=== PATIENT | female | born 1935 | race Caucasian/White ===

== ENCOUNTER → 2016-10-07 | Outpatient (CLI) | payer OTHER, BC | LOC: FIMAGING 13:48 | PROVIDERS: ATTEND Internal Medicine | DX: J40 Bronchitis, not specified as acute or chronic (principal) ==

== ENCOUNTER 2016-11-02 14:18 | Emergency (ER) | payer OTHER, BC ==
[2016-11-02 14:38] LABS: COLOR YELLOW; LEUKOCYTE ESTERASE,URINE 1+ (NEGATIVE); NITRITE,URINE NEGATIVE (NEGATIVE); PH,URINE 5.5 (5.0-7.5)
[2016-11-02 14:47] LABS: MUCUS TRACE /lpf (NONE-1+)
[2016-11-02 14:48] LABS: WBC,URINE >182 /hpf (0-3)
[2016-11-02 14:49] LABS: BACTERIA 1+ /hpf (NONE SEEN); YEAST OCCASIONAL /hpf (NONE SEEN)
[2016-11-02] MEDS ORDERED: CEPHALEXIN 500 MG CAP PO ONE (14:49)
--- NOTE | 2016-11-02 14:49 | EDPHY ---
H & P Time Seen by Provider: 11/02/16 14:38 HPI/ROS: CHIEF COMPLAINT: Dysuria HISTORY OF PRESENT ILLNESS: 80-year-old female with history of frequent UTIs presents with dysuria. Onset of dysuria, urinary frequency and hesitancy yesterday. Persistent since then. No associated abdominal pain, flank pain or fever. REVIEW OF SYSTEMS: Constitutional: No fever, no chills Eyes: No visual changes ENT: No sore throat Respiratory: No cough, no shortness of breath Cardiac: No chest pain Gastrointestinal: No nausea, no vomiting, no abdominal pain Musculoskeletal: No leg pain or swelling Skin: No rash Neurological: No headache, no weakness Psychiatric: No depression Past Medical/Surgical History: Hypertension CAD UTIs Smoking Status: Never smoked Physical Exam: General Appearance: Alert, pleasant HEENT: Normal inspection Respiratory: normal respiratory rate Gastrointestinal: Abdomen is soft and nontender Neurological: A&O, nonfocal exam Skin: Warm and dry Psychiatric: Mood and affect normal Constitutional: Initial Vital Signs Temperature (C) 36.5 C 11/02/16 14:38 Heart Rate 66 11/02/16 14:38 Respiratory Rate 18 11/02/16 14:38 Blood Pressure 177/87 H 11/02/16 14:38 O2 Sat (%) 97 11/02/16 14:38 O2 Delivery Mode Room Air Allergies/Adverse Reactions: adhesive Allergy (Intermediate, Verified 11/02/16 14:36) Rash Iodinated Contrast- Oral and IV Dye [Iodinated Contrast Media - IV Dye] Allergy (Verified 11/02/16 14:36) Swelling/neck,face,throat metoclopramide Allergy (Verified 11/02/16 14:36) omega-3 acid ethyl esters Allergy (Verified 11/02/16 14:36) Klqbyys-Aag-Asg Reductase Inhibitor Allergy (Verified 11/02/16 14:36) Home Medications: Medication Instructions Recorded Aspirin [Aspirin 325 mg (*)] 325 mg PO DAILY 06/27/13 Atenolol [Tenormin 25 mg (*)] 12.5 mg PO DAILY 06/27/13 Darifenacin Hydrobromide [Enablex] 15 mg PO DAILY 06/27/13 Levothyroxine [Synthroid 150 mcg 150 mcg PO DAILY06 06/27/13 (*)] Pramipexole Di-HCl [Mirapex 0.25 0.5 mg PO DAILY@18 06/27/13 mg (*)] Raloxifene HCl [Evista] 60 mg PO DAILY 06/27/13 Albuterol [Proventil Inhaler HFA 2 puffs IH PRN PRN 03/25/14 (*)] Calcium Carbonate [Oyster Shell 500 mg PO DAILY 03/25/14 Calcium 500 mg (*)] Omeprazole [Prilosec] 40 mg PO DAILY 06/27/14 Pramipexole Di-HCl [Mirapex 1 mg 1 mg PO DAILY@12 06/29/14 (*)] Nitroglycerin [Nitrostat 0.4 mg 0.4 mg SL PRN PRN 30 Days 07/06/14 (*)] Raloxifene HCl [Evista] 60 mg PO 08/16/14 Cephalexin [Keflex (*)] 500 mg PO TID #21 cap 11/02/16 Prozac 20 MG (*) 11/02/16 TRAMADOL HCL 11/02/16 Medical Decision Making - Data Points Laboratory Results: 11/02/16 14:35 Urine Color YELLOW Urine Appearance CLOUDY Urine pH 5.5 (5.0-7.5) Ur Specific [place] 1.015 (1.002-1.030) Urine Protein NEGATIVE (NEGATIVE) Urine Ketones NEGATIVE (NEGATIVE) Urine Blood TRACE H (NEGATIVE) Urine Nitrate NEGATIVE (NEGATIVE) Urine Bilirubin NEGATIVE (NEGATIVE) Urine Urobilinogen 0.2 EU EU (0.2-1.0) Ur Leukocyte Esterase 1+ H (NEGATIVE) Urine RBC 5-10 /hpf H /hpf (0-3) Urine WBC >182 /hpf H /hpf (0-3) Ur Epithelial Cells 1+ /lpf /lpf (NONE-1+) Urine Bacteria 1+ /hpf H /hpf (NONE SEEN) Urine Mucus TRACE /lpf /lpf (NONE-1+) Urine Yeast OCCASIONAL /hpf H /hpf (NONE SEEN) Urine Glucose NEGATIVE (NEGATIVE) Departure - Departure Disposition: Home, Routine, Self-Care Clinical Impression: Urinary tract infection Qualifiers: Urinary tract infection type: acute cystitis Hematuria presence: without hematuria Qualified Code(s): N30.00 - Acute cystitis without hematuria Condition: Good Instructions: Urinary Tract Infection in Women (ED) Referrals: Tiffany Ramírez MD [Primary Care Provider] - As per Instructions Prescriptions: Cephalexin [Keflex (*)] 500 mg PO TID #21 cap
[2016-11-02 14:52] VITALS: BP 167/78; PULSE 67; RESP 20; TEMP 98.1; O2SAT 92
== END 2016-11-02 14:58 | disposition home or self-care (01) ==
LOC: CED 14:18
DX: N30.00 Acute cystitis without hematuria (principal); B96.20 Unspecified Escherichia coli [E. coli] as the cause of diseases classified elsewhere; I10 Essential (primary) hypertension; I25.10 Atherosclerotic heart disease of native coronary artery without angina pectoris; Z79.82 Long term (current) use of aspirin
CPT/HCPCS: 81003-PO; 81015-PO

== ENCOUNTER → 2016-11-15 | Outpatient (CLI) | payer OTHER, BC | LOC: BMCIMAGING 09:46 | PROVIDERS: ATTEND Internal Medicine | DX: Z13.820 Encounter for screening for osteoporosis (principal); M85.80 Other specified disorders of bone density and structure, unspecified site ==

== ENCOUNTER 2017-02-14 10:32 | Day surgery (SDC) | payer OTHER, BC ==
[2017-02-14] MEDS ORDERED: LR 1,000 ML IV ONE (10:43)
[2017-02-14 11:12] VITALS: PULSE 82
--- NOTE | 2017-02-14 12:02 | PDANEPAE ---
ANE History of Present Illness colonoscopy ANE Past Medical History - Cardiovascular History Hx Hypertension: Yes Hx Arrhythmias: Yes Hx Chest Pain: No Hx Coronary Artery / Peripheral Vascular Disease: No Hx CHF / Valvular Disease: No Hx Palpitations: No Cardiovascular History Comment: "Atrial Septal Thickening" causing PAC's. Venous insufficiency. HPL - Pulmonary History Hx COPD: No Hx Asthma/Reactive Airway Disease: Yes Hx Recent Upper Respiratory Infection: No Hx Oxygen in Use at Home: No Hx Sleep Apnea: Yes Sleep Apnea Screening Result - Last Documented: Positive Pulmonary History Comment: hx of asthma. MARLON w/CPAP. - Neurologic History Hx Cerebrovascular Accident: No Hx Seizures: No Hx Dementia: No - Endocrine History Hx Diabetes: No Obesity: severe Endocrine History Comment: Alka's - Renal History Hx Renal Disorders: Yes Renal History Comment: stress incontinence. UTI's - Liver History Hx Hepatic Disorders: Yes Hepatic History Comment: Gilbert's syndrome - Neurological & Psychiatric Hx Hx Neurological and Psychiatric Disorders: Yes Neurological / Psychiatric History Comment: lumbar fusion is "loose" due to infection. Neuropathy-feet,ankles "idiopathic". mood stabilized on Prozac - Cancer History Hx Cancer: No - Congenital Disorder History Hx Congenital Disorders: No - GI History GERD: no, mild Hx Gastrointestinal Disorders: No Gastrointestinal History Comment: Pt is a "polyp-maker!!" Hx of ~15 colonoscopies. on Ranitidine to decrease antihistamines - Other Health History Other Health History: Poly Myalgia Rheumatica. ventral incisional hernia. OA - Chronic Pain History Chronic Pain: Yes (PMR) - Surgical History Prior Surgeries: CABG x4. cataract extractions w/IOL-bilat. lumbar fusion. bilat total hips. bilat total knees. resurfacing of L shoulder ANE Review of Systems Review of Systems: - Exercise capacity METS (RN): 4 METS (pt. ambulates with walker "due to poor balance") ANE Patient History - Allergies Allergies/Adverse Reactions: adhesive Allergy (Intermediate, Verified 02/11/17 16:39) Rash Iodinated Contrast- Oral and IV Dye [Iodinated Contrast Media - IV Dye] Allergy (Verified 02/11/17 16:39) Swelling/neck,face,throat metoclopramide Allergy (Verified 02/11/17 16:39) scopolamine Allergy (Verified 02/11/17 16:47) Other-Enter Comments Hcbswxx-Spd-Lku Reductase Inhibitor Allergy (Verified 02/11/17 16:39) methyl methacrylate Allergy (Uncoded 02/11/17 16:47) Other-Enter Comments - Home Medications Home Medications: Aspirin [Aspirin 325 mg (*)] 325 mg PO DAILY 06/27/13 [Last Taken 02/10/17] Atenolol [Tenormin 25 mg (*)] 12.5 mg PO DAILY 06/27/13 [Last Taken 02/14/17 07: 30] Levothyroxine [Synthroid 150 mcg (*)] 150 mcg PO DAILY06 06/27/13 [Last Taken 07:30] Pramipexole Di-HCl [Mirapex 0.25 mg (*)] 0.5 mg PO DAILY@18 06/27/13 [Last Taken 02/14/17 07:30] Raloxifene HCl [Evista] 60 mg PO DAILY 06/27/13 [Last Taken 02/14/17 07:30] Albuterol [Proventil Inhaler HFA (*)] 2 puffs IH PRN PRN 03/25/14 [Last Taken Unknown] Calcium Carbonate [Oyster Shell Calcium 500 mg (*)] 500 mg PO DAILY 03/25/14 [ Last Taken Unknown] Pramipexole Di-HCl [Mirapex 1 mg (*)] 1 mg PO DAILY@12 06/29/14 [Last Taken 07:30] Prozac 20 MG (*) 11/02/16 [Last Taken 02/14/17 07:30] TRAMADOL HCL 11/02/16 [Last Taken 02/10/17] Leflunomide 02/11/17 [Last Taken 02/14/17 07:30] Ranitidine HCl 02/11/17 [Last Taken 02/14/17 07:30] - NPO status NPO Since - Liquids (Date): 02/14/17 NPO Since - Liquids (Time): 07:30 NPO Since - Solids (Date): 02/12/17 NPO Since - Solids (Time): 20:00 - Smoking Hx Smoking Status: Never smoked ANE Labs/Vital Signs - Vital Signs Blood Pressure: 150/82 Heart Rate: 82 Respiratory Rate: 14 O2 Sat (%): 95 Height: 154.94 cm Weight: 106.594 kg ANE Physical Exam - Airway Neck exam: FROM Mallampati Score: Class 1 Mouth exam: normal dental/mouth exam - Pulmonary Pulmonary: clear to auscultation - Cardiovascular Cardiovascular: regular rate and rhythym - ASA Status ASA Status: III ANE Anesthesia Plan Anesthesia Plan: GA with mask
--- NOTE | 2017-02-14 12:06 | PDGENHP ---
History & Physical Chief Complaint: Diarrhea History of Present Illness: Chronic diarrhea Pertinent Past, Social, Family History: Obesity. MARLON. PMR Relevant Physical Exam: Obese. NAD. CTA B/L. RRR without m/r/g. GI obese. NABS. Soft. Cardiorespiratory Assessment: ASA 4. Colonoscopy with biopsy
[2017-02-14] MEDS ORDERED: PROPOFOL 200 MG/20 ML VIAL ONE ×2 (12:15)
[2017-02-14] MEDS ORDERED: MIDAZOLAM 2 MG/2 ML VIAL ONE (12:15)
[2017-02-14] MEDS ORDERED: fentaNYL 100 MCG/2 ML INJ ONE (12:15)
--- NOTE | 2017-02-14 12:46 | GIREPORT ---
[facility] - Endoscopy Department Patient Name: Kaya Corona Procedure Date: 02/14/2017 12:00 PM Patient Type: Outpatient Attending MD/ ER Physician: Anival Goel MD Procedure: Colonoscopy Indications: Chronic diarrhea Providers: Anival Goel MD Medicines: Propofol per Anesthesia Complications: No immediate complications. Description of Procedure: After obtaining informed consent, the scope was passed under direct vis ion. Throughout the procedure, the patient's blood pressure, pulse, and oxyg en saturations were monitored continuously. The Colonoscope with irrigatio n channel was introduced through the anus and advanced to the ileocolonic anastomosis. The colonoscopy was performed without difficulty. The jian ent tolerated the procedure well. The quality of the bowel preparation was good. The rectum and surgical anastamosis were photographed. Findings: The digital rectal exam findings include decreased sphincter tone. Pert inent negatives include no palpable rectal lesions. There was evidence of a prior end-to-side ileo-colonic anastomosis in t he proximal ascending colon. This was patent and was characterized by heal thy appearing mucosa. A 5 mm polyp was found in the proximal ascending colon. The polyp was sessile. The polyp was removed with a cold biopsy forceps. Resection an d retrieval were complete. Normal mucosa was found in the entire colon. Biopsies for histology wer e taken with a cold forceps from the right colon and left colon for evalu ation of microscopic colitis. A few small-mouthed diverticula were found in the sigmoid colon. Estimated Blood Loss: Estimated blood loss: none. Post Op Diagnosis: - Decreased sphincter tone found on digital rectal exam. - Patent end-to-side ileo-colonic anastomosis, characterized by healthy appearing mucosa. - One 5 mm polyp in the proximal ascending colon, removed with a cold b iopsy forceps. Resected and retrieved. - Normal mucosa in the entire examined colon. Biopsied. - Diverticulosis in the sigmoid colon. - No endoscopic cause for chronic diarrhea. Recommendation: - Await pathology results. These will be evaluated for mastocytosis (gi crow her elevated tryptase level) and microscopic colitis. - Repeat colonoscopy is not recommended for surveillance. - Return to GI office as previously scheduled. - Consider a trial of cholestyramine powder (4gm daily) to treat her ch ronic diarrhea. We will discuss this at her follow up visit. - Thank you for allowing me to be involved in the care of your patient. Attending Participation: I personally performed the entire procedure without the assistance of a fellow, resident or surg ical field administrative assistant. Anival Goel MD Anival Goel MD 02/14/2017 12:46:12 PM This report has been signed electronicallyDavid MD Manasa Number of Addenda: 0 Note Initiated On: 02/14/2017 12:00 PM Total Procedure Duration Time 0 hours 16 minutes 14 seconds [email or web address]
[2017-02-14] MEDS ORDERED: NALOXONE HCL 0.4 MG/ML INJ IVP PRN (12:51)
[2017-02-14 13:17] VITALS: O2SAT 100
--- NOTE | 2017-02-14 13:25 | POSTANESTH ---
Post Anesthetic Evaluation Cardiovascular Status: Similar to Pre-Op Cond Respiratory Status: Similar to Pre-op Cond. Level of Consciousness/Mental Status: Can Participate in Eval Pain Control: Adequate, Prn Tx Ordered Nausea/Vomiting Control: Adequate, Prn Tx Ordered Complications Possibly Related to Anesthesia: None Noted
[2017-02-14 13:45] VITALS: BP 153/63; RESP 16; TEMP 97.5
== END 2017-02-14 13:41 | disposition home or self-care (01) ==
LOC: FSGY 10:32
PROVIDERS: ATTEND Internal Medicine Gastroenterology
PROC: 0DBE8ZX Excision of Large Intestine, Via Natural or Artificial Opening Endoscopic, Diagnostic (ICD-10-PCS; principal; 2017-02-14 12:00)
PROC: 0DBK8ZX Excision of Ascending Colon, Via Natural or Artificial Opening Endoscopic, Diagnostic (ICD-10-PCS; principal; 2017-02-14 12:00)
DX: Z12.11 Encounter for screening for malignant neoplasm of colon (principal); R19.7 Diarrhea, unspecified; D12.2 Benign neoplasm of ascending colon
CPT/HCPCS: J2250; J2704; J3010

== ENCOUNTER 2017-07-22 13:40 | Emergency (ER) | payer OTHER, BC ==
[2017-07-22] MEDS ORDERED: predniSONE 20 MG TAB PO ONE (14:19)
[2017-07-22] MEDS ORDERED: ALBUTEROL 3 ML DEYVIAL IH ONE (14:19)
--- NOTE | 2017-07-22 14:23 | EDPHY ---
H & P Smoking Status: Never smoked <Surekha Celaya S - Last Filed: 07/22/17 14:54> <Figueroa Purvis E - Last Filed: 07/22/17 15:34> Time Seen by Provider: 07/22/17 14:09 HPI/ROS: CHIEF COMPLAINT: "Bad cold" HISTORY OF PRESENT ILLNESS: Patient is an 81-year-old female who presents emergency department with cold-like symptoms. She states her symptoms started over 1 week ago. She initially developed a sore throat. This improved. However, she developed nasal congestion and sinus pain. She then had a subsequent cough. Yesterday her cough became productive of green sputum. She denies significant shortness of breath. She uses CPAP at night in this is been unchanged. Patient reports that she was diagnosed with asthma in the past but does not take an inhaler. She does not believe she has asthma. Patient denies fevers or chills. No chest pain. No abdominal pain. No nausea or vomiting. REVIEW OF SYSTEMS: My complete review of systems is negative except as mentioned in the HPI. ( Surekha Celaya) Past Medical/Surgical History: Includes possible asthma, coronary artery disease, hypertension, hyperlipidemia , skin cancer Past surgical history: Includes CABG, orthopedic surgeries, skin cancer surgery , ileocolectomy, D and C, eyelid surgery, cholecystectomy Social history: Patient does not smoke. She denies use of drugs. (Surekha Celaya S) Physical Exam: 37.1, 124/65, 64, 16, 94% on room air GENERAL: No acute distress, alert. HEENT: Eyes normal to inspection, normal pharynx, no signs of dehydration. NECK: No thyromegaly, no lymphadenopathy, supple. No stridor RESPIRATORY: Coarse breath sounds bilaterally with scattered wheezing. No rales or rhonchi. CVS: Regular rate and rhythm, no rubs, murmurs, or gallops. ABDOMEN: Soft, nontender, nondistended, no organomegaly. Benign BACK: Normal to inspection, no CVA tenderness. SKIN: Normal color, no rash, warm, dry. No pallor. EXTREMITIES: No pedal edema, no calf tenderness, no Homans sign or cords, no joint swelling. Varicose veins. NEURO/PSYCH: Alert and oriented x3, normal mood and affect, normal motor sensory exam. No obvious cranial nerve deficit. (Surekha Celaya S) Constitutional: Initial Vital Signs Temperature (C) 37.1 C 07/22/17 13:57 Heart Rate 64 07/22/17 13:57 Respiratory Rate 16 07/22/17 13:57 Blood Pressure 124/65 H 07/22/17 13:57 O2 Sat (%) 94 07/22/17 13:57 O2 Delivery Mode Room Air Allergies/Adverse Reactions: adhesive Allergy (Intermediate, Verified 07/22/17 13:49) Rash Iodinated Contrast- Oral and IV Dye [Iodinated Contrast Media - IV Dye] Allergy (Verified 07/22/17 13:49) Swelling/neck,face,throat metoclopramide Allergy (Verified 07/22/17 13:49) scopolamine Allergy (Verified 07/22/17 13:49) Other-Enter Comments Aefewys-Qdv-Nro Reductase Inhibitor Allergy (Verified 07/22/17 13:49) methyl methacrylate Allergy (Uncoded 07/22/17 13:49) Other-Enter Comments Home Medications: Medication Instructions Recorded Aspirin [Aspirin 325 mg (*)] 325 mg PO DAILY 06/27/13 Atenolol [Tenormin 25 mg (*)] 12.5 mg PO DAILY 06/27/13 Levothyroxine [Synthroid 150 mcg 137 mcg PO DAILY06 06/27/13 (*)] Raloxifene HCl [Evista] 60 mg PO DAILY 06/27/13 Albuterol [Proventil Inhaler HFA 2 puffs IH PRN PRN 03/25/14 (*)] Pramipexole Di-HCl [Mirapex 1 mg 1 mg PO DAILY@12 06/29/14 (*)] Prozac 20 MG (*) 11/02/16 TRAMADOL HCL 11/02/16 Ranitidine HCl 02/11/17 Albuterol [Proventil Inhaler] 1 - 2 puffs IH Q4H #1 mdi 07/22/17 Azithromycin 250 mg PO DAILY #4 tablet 07/22/17 Estimibe 07/22/17 Leflunomide 07/22/17 Losartan/Hctz 50/12.5 07/22/17 predniSONE 60 mg PO DAILY #15 tab 07/22/17 Medical Decision Making <Surekha Celaya S - Last Filed: 07/22/17 14:54> - Diagnostics Imaging: Discussed imaging studies w/ call center representative Radiologist <Figueroa Purvis - Last Filed: 07/22/17 15:34> - Diagnostics Imaging Results: Imaging Impressions Chest X-Ray 07/22/17 14:20 Impression: 1. Peribronchial cuffing in the perihilar region along with prominence of perihilar interstitial markings. Findings are nonspecific but can be seen with bronchitis, viral process, or reactive airways disease. ED Course/Re-evaluation: In the emergency department I discussed possible etiologies with the patient and her daughter. I answered all her questions. I discussed diagnostic options. At this time they would prefer not to have laboratory studies an extensive workup done. Chest x-ray was ordered. Patient was given albuterol neb for her wheezing. She has an allergy to scopolamine. Patient was also given prednisone 60 mg orally. 1500: The patient is signed out to Dr. Purvis at change of shift. Chest x- ray is pending. My plan is if the patient has a simple pneumonia she will be treated as an outpatient. If the x-ray reveals into more complicated Dr. Purvis will address this. (Surekha Celyaa) 3:30 p.m. the patient is saturating in the low 90s. She is eager to go home. She states that she feels somewhat better after the DuoNeb. She was also started on steroids. We will continue this treatment as well as initiate azithromycin for bronchitis in the setting asthma/emphysema. The patient and daughter are agreeable with this plan. We discussed indications for returning to the emergency department. She remains afebrile and well-appearing. (Figueroa Purvis) Differential Diagnosis: My differential includes but is not limited to pneumonia, bronchitis, viral illness, influenza, empyema, ACS, acute CO, CHF (Surekha Celaya) - Data Points Medications Given: Discontinued Medications Albuterol (Proventil Neb) 3 ml IH EDNOW ONE Stop: 07/22/17 14:20 Last Admin: 07/22/17 14:38 Dose: 3 ml Prednisone (Prednisone) 60 mg PO EDNOW ONE Stop: 07/22/17 14:20 Last Admin: 07/22/17 14:31 Dose: 60 mg Departure <Surekha Celaya S - Last Filed: 07/22/17 14:54> <Figueroa Purvis E - Last Filed: 07/22/17 15:34> - Departure Disposition: Home, Routine, Self-Care Clinical Impression: Acute bronchitis, Asthma Condition: Good Instructions: Asthma (ED), Acute Bronchitis (ED) Referrals: Tiffany Ramírez MD [Primary Care Provider] - As per Instructions Prescriptions: Albuterol [Proventil Inhaler] 1 - 2 puffs IH Q4H #1 mdi Azithromycin 250 mg PO DAILY #4 tablet predniSONE 60 mg PO DAILY #15 tab
[2017-07-22] MEDS ORDERED: AZITHROMYCIN 250 MG TAB PO ONE (15:35)
[2017-07-22 15:46] VITALS: BP 105/48
== END 2017-07-22 15:44 | disposition home or self-care (01) ==
LOC: CED 13:40
DX: J20.9 Acute bronchitis, unspecified (principal); J45.909 Unspecified asthma, uncomplicated; I10 Essential (primary) hypertension; I25.810 Atherosclerosis of coronary artery bypass graft(s) without angina pectoris; Z79.82 Long term (current) use of aspirin; Z85.828 Personal history of other malignant neoplasm of skin
CPT/HCPCS: 71046; 99284; J7512; J7613

== ENCOUNTER 2017-08-15 09:41 | Emergency (ER) | payer OTHER, BC ==
[2017-08-15 10:01] VITALS: BP 161/74
--- NOTE | 2017-08-15 10:38 | EDPHY ---
H & P Time Seen by Provider: 08/15/17 10:36 HPI/ROS: HPI Burning with urination. 81-year-old female by private vehicle. She complains of burning with urination ongoing for 2 days now. No back pain. No fever. No nausea or vomiting. ROS: Constitutional: No fever, no chills. No weakness. Respiratory: No cough. No shortness of breath. Cardiac: No chest pain, no palpitations. Gastrointestinal: No abdominal pain, no vomiting, no diarrhea. Genitourinary: No hematuria. As above. Musculoskeletal: No back pain. No neck pain. No myalgias or arthralgias. Skin: No rashes. Neurological: No headache. No focal weakness or altered sensation. Past medical history: TIA, coronary artery disease, CABG, hypothyroid, hypertension, hyperlipidemia, cholecystectomy, hip replacement. She is currently on a Holter monitor and is scheduled for a stress test later today. Social history: Nonsmoker, here by herself. Physical Exam: General Appearance: Alert, no distress. This patient is responding to questions appropriately and in full sentences. This patient appears well- hydrated and well-nourished. Respiratory: There are no retractions, lungs are clear to auscultation with good air movement bilaterally. Cardiovascular: Regular rate and rhythm. No murmur. Gastrointestinal: Abdomen is soft and nontender, no masses, bowel sounds normal. No focal tenderness at McBurney's point. No Khan sign. Neurological: Motor sensory function is grossly intact. Cranial nerves are normal. Gait is normal. Skin: Warm and dry, no rashes. Musculoskeletal: No CVA tenderness bilaterally. Extremities are symmetrical. All joints range without pain or impingement. Psychiatric: No agitation. No depression. Database: EKG: Imaging: Procedures: Emergency department course: Vital signs reviewed. Patient is afebrile. She is moderately hypertensive. Medication allergies reviewed. She was started on Keflex, 500 mg in the emergency department. She will be prescribed this medication on discharge for treatment of urinary tract infection. She feels comfortable going home. Follow -up and return to emergency department precautions customarily discussed with her. All of her questions were answered. She was discharged in good condition. Differential Diagnosis: The differential diagnosis on this patient includes but is not limited to urinary tract infection. Pyelonephritis unlikely. This represents a partial list of diagnoses considered. These considerations are based on history, physical exam, past history, reassessment and diagnostic testing. Smoking Status: Never smoked Constitutional: Initial Vital Signs Temperature (C) 36.4 C 08/15/17 09:58 Heart Rate 84 08/15/17 09:58 Respiratory Rate 20 08/15/17 09:58 Blood Pressure 161/74 H 08/15/17 09:58 O2 Sat (%) 94 08/15/17 09:58 Allergies/Adverse Reactions: adhesive Allergy (Intermediate, Verified 07/22/17 13:49) Rash Iodinated Contrast- Oral and IV Dye [Iodinated Contrast Media - IV Dye] Allergy (Verified 07/22/17 13:49) Swelling/neck,face,throat metoclopramide Allergy (Verified 08/15/17 10:02) Other-Enter Comments scopolamine Allergy (Verified 07/22/17 13:49) Other-Enter Comments Guqqwza-Bum-Tci Reductase Inhibitor Allergy (Verified 08/15/17 10:03) Other-Enter Comments methyl methacrylate Allergy (Uncoded 07/22/17 13:49) Other-Enter Comments Home Medications: Medication Instructions Recorded Aspirin [Aspirin 325 mg (*)] 325 mg PO DAILY 06/27/13 Atenolol [Tenormin 25 mg (*)] 12.5 mg PO DAILY 06/27/13 Levothyroxine [Synthroid 150 mcg 137 mcg PO DAILY06 06/27/13 (*)] Raloxifene HCl [Evista] 60 mg PO DAILY 06/27/13 Albuterol [Proventil Inhaler HFA 2 puffs IH PRN PRN 03/25/14 (*)] Pramipexole Di-HCl [Mirapex 1 mg 1 mg PO DAILY@12 06/29/14 (*)] Prozac 20 MG (*) 11/02/16 TRAMADOL HCL 11/02/16 Ranitidine HCl 02/11/17 Albuterol [Proventil Inhaler] 1 - 2 puffs IH Q4H #1 mdi 07/22/17 Estimibe 07/22/17 Leflunomide 07/22/17 Losartan/Hctz 50/12.5 07/22/17 Cephalexin [Keflex (*)] 500 mg PO Q6 7 Days cap 08/15/17 Medical Decision Making - Data Points Laboratory Results: 08/15/17 10:15 Urine Color YELLOW Urine Appearance CLOUDY Urine pH 5.0 (5.0-7.5) Ur Specific [place] 1.010 (1.002-1.030) Urine Protein NEGATIVE (NEGATIVE) Urine Ketones NEGATIVE (NEGATIVE) Urine Blood 1+ H (NEGATIVE) Urine Nitrate NEGATIVE (NEGATIVE) Urine Bilirubin NEGATIVE (NEGATIVE) Urine Urobilinogen 0.2 EU EU (0.2-1.0) Ur Leukocyte Esterase 2+ H (NEGATIVE) Urine RBC 3-5 /hpf H /hpf (0-3) Urine WBC 50-182 /hpf H /hpf (0-3) Ur Epithelial Cells 1+ /lpf /lpf (NONE-1+) Urine Bacteria 1+ /hpf H /hpf (NONE SEEN) Urine Mucus TRACE /lpf /lpf (NONE-1+) Urine Glucose NEGATIVE (NEGATIVE) Departure - Departure Disposition: Home, Routine, Self-Care Clinical Impression: Urinary tract infection Condition: Good Instructions: Urinary Tract Infection in Women (ED) Additional Instructions: Read and follow provided instructions. Follow-up with your primary care physician in 1-2 days for re-evaluation. Take medication as prescribed for treatment of urinary tract infection. Return to the emergency department for worsening symptoms, fever, back pain, vomiting or other serious concerns. Referrals: Tiffany Ramírez MD [Primary Care Provider] - As per Instructions Prescriptions: Cephalexin [Keflex (*)] 500 mg PO Q6 7 Days cap
[2017-08-15] MEDS ORDERED: CEPHALEXIN 500 MG CAP PO ONE (10:42)
== END 2017-08-15 10:49 | disposition home or self-care (01) ==
LOC: CED 09:41
DX: N39.0 Urinary tract infection, site not specified (principal); B96.20 Unspecified Escherichia coli [E. coli] as the cause of diseases classified elsewhere; I25.810 Atherosclerosis of coronary artery bypass graft(s) without angina pectoris; I10 Essential (primary) hypertension; Z79.82 Long term (current) use of aspirin
CPT/HCPCS: 81003-PO; 81015-PO

== ENCOUNTER → 2017-08-29 | Outpatient (CLI) | payer OTHER, BC | LOC: BHFA 09:30 | PROVIDERS: ATTEND Internal Medicine Cardiovascular Disease | DX: I25.10 Atherosclerotic heart disease of native coronary artery without angina pectoris (principal) | CPT/HCPCS: 78452; 93017; A9500; J2785 ==

== ENCOUNTER 2017-11-24 11:29 | Emergency (ER) | payer OTHER, BC ==
--- NOTE | 2017-11-24 11:44 | EDPHY ---
H & P Time Seen by Provider: 11/24/17 11:32 HPI/ROS: Chief Complaint: UTI symptoms HPI: 82-year-old woman with a history of recurrent urinary tract infections secondary to chronic diarrhea is presenting with 2 days of urinary urgency frequency and dysuria. Patient states that feels just like her prior UTIs. No fevers or chills. No back pain. No nausea or vomiting. No shortness of breath. She says her primary care physician usually give her Bactrim for 3 days. Doctor for into and has not worked for in the past. They have been avoiding Keflex. ROS: 10 point Review of Systems is negative except as noted in the HPI. Social History: No smoking, no alcohol, no recreational drug use Family History: non-contributory Physical Exam: Gen: Awake, Alert, No Distress HEENT: Nose: no rhinorrhea Eyes: PERRLA, EOMI Mouth: Moist mucosa Neck: Supple, no JVD Chest: nontender, lungs clear to auscultation Heart: S1, S2 normal, no murmur Abd: Soft, non-tender, no guarding Back: no CVA tenderness, no midline tenderness Ext: no edema, non-tender Skin: no rash Neuro: CN II-XII intact, Sensation grossly intact, Strength 5/5 in bilateral upper and lower extremities - Personal History Tetanus Vaccine Date: 2016 - Medical/Surgical History Hx Asthma: Yes Hx Chronic Respiratory Disease: No Hx Diabetes: No Hx Cardiac Disease: Yes Hx Renal Disease: No Hx Cirrhosis: No Hx Alcoholism: No Hx HIV/AIDS: No Hx Splenectomy or Spleen Trauma: No Other PMH: 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 orthopedic surgerys. Skin cancer surgeries, Total Hip right and left. ileocolectomy. See chart copy for details. D&C. [employer] OF [employer]SERV[employer] surgery. Eye lid surgery. Cholecystectomy. Colonoscopy. see H&P - Social History Smoking Status: Never smoked Allergies/Adverse Reactions: adhesive Allergy (Intermediate, Verified 11/24/17 11:34) Rash Iodinated Contrast- Oral and IV Dye [Iodinated Contrast Media - IV Dye] Allergy (Verified 11/24/17 11:34) Swelling/neck,face,throat metoclopramide Allergy (Verified 11/24/17 11:34) Other-Enter Comments scopolamine Allergy (Verified 11/24/17 11:34) Other-Enter Comments Zoctjvr-Ssd-Tis Reductase Inhibitor Allergy (Verified 11/24/17 11:34) Other-Enter Comments methyl methacrylate Allergy (Uncoded 11/24/17 11:34) Other-Enter Comments Home Medications: Medication Instructions Recorded Aspirin [Aspirin 325 mg (*)] 325 mg PO DAILY 06/27/13 Atenolol [Tenormin 25 mg (*)] 12.5 mg PO DAILY 06/27/13 Levothyroxine [Synthroid 150 mcg 137 mcg PO DAILY06 06/27/13 (*)] Raloxifene HCl [Evista] 60 mg PO DAILY 06/27/13 Albuterol [Proventil Inhaler HFA 2 puffs IH PRN PRN 03/25/14 (*)] Pramipexole Di-HCl [Mirapex 1 mg 1 mg PO DAILY@12 06/29/14 (*)] Prozac 20 MG (*) 11/02/16 TRAMADOL HCL 11/02/16 Ranitidine HCl 02/11/17 Albuterol [Proventil Inhaler] 1 - 2 puffs IH Q4H #1 mdi 07/22/17 Estimibe 07/22/17 Leflunomide 07/22/17 Losartan/Hctz 50/12.5 07/22/17 Sulfamethox/Tmp 800/160 mg 1 tab PO BID #10 tab 11/24/17 [Bactrim Ds] Medical Decision Making ED Course/Re-evaluation: 82-year-old with symptoms consistent UT I. Urine culture has been sent. She says Bactrim usually works well for her. I have reviewed her prior cultures her last culture last month was susceptible to Bactrim. Will start her on Bactrim DS twice a day for 5 days. I have sent a urine culture today. Departure - Departure Disposition: Home, Routine, Self-Care Clinical Impression: Urinary tract infection Condition: Good Instructions: Urinary Tract Infection in Women (ED) Additional Instructions: Follow up with primary care physician in 3-4 days for further evaluation. Referrals: Tiffany Ramírez MD [Primary Care Provider] - As per Instructions Prescriptions: Sulfamethox/Tmp 800/160 mg [Bactrim Ds] 1 tab PO BID #10 tab
[2017-11-24 11:45] VITALS: BP 154/83
== END 2017-11-24 12:05 | disposition home or self-care (01) ==
LOC: CED 11:29
DX: N39.0 Urinary tract infection, site not specified (principal); R19.7 Diarrhea, unspecified

== ENCOUNTER → 2018-04-06 | Outpatient (CLI) | payer OTHER, BC | LOC: BHFA 10:45 | PROVIDERS: ATTEND Internal Medicine Cardiovascular Disease | DX: I25.10 Atherosclerotic heart disease of native coronary artery without angina pectoris (principal) ==

== ENCOUNTER 2018-05-27 09:39 | Emergency (ER) | payer OTHER, BC | END 2018-05-27 10:38 | disposition home or self-care (01) | LOC: CED 09:39 ==

== ENCOUNTER 2018-07-16 12:48 | Emergency (ER) | payer OTHER, BC ==
[2018-07-16 13:08] VITALS: BP 152/75
--- NOTE | 2018-07-16 13:49 | EDPHY ---
H & P Time Seen by Provider: 07/16/18 13:35 HPI/ROS: 82-year-old female presents complaining of urgency, frequency and burning with urination that began over the last 2-3 days. She states she gets urinary tract infections frequently secondary to chronic incontinence. No fevers no chills no nausea no vomiting no back pain. She states her last urinary tract infection was approximately 2 months ago and she was treated with nitrofurantoin and then changed to cephalexin. Review of systems As per HPI General no fever no chills no weakness HEENT no eye pain no eye discharge. No eye redness, no sore throat Respiratory no cough, no shortness of breath Cardiac no chest pain, no peripheral edema GI no abdominal pain, no diarrhea, no constipation, no nausea, no vomiting no flank pain, no hematuria, positive dysuria Musculoskeletal no myalgias, no joint pain Heme no easy bruising, no easy bleeding Endo no polyuria, no polydipsia Skin no rashes, no pruritus Neuro no syncope, no dizziness, no headaches Past Medical/Surgical History: GERD Hypertension Hypothyroidism Urinary incontinence Social History: Denies alcohol or drug use Smoking Status: Never smoked Physical Exam: 82-year-old female Female alert and oriented in no acute distress nontoxic appearance, afebrile Atraumatic normocephalic Neck supple Lungs clear to auscultation bilaterally Heart regular rate and rhythm Abdomen normoactive bowel sounds soft mild suprapubic tenderness no guarding no rebound Back no CVA tenderness Extremities no cyanosis clubbing or edema Skin no rash Constitutional: Initial Vital Signs Temperature (C) 37.0 C 07/16/18 12:59 Heart Rate 75 07/16/18 12:59 Respiratory Rate 16 07/16/18 12:59 Blood Pressure 152/75 H 07/16/18 12:59 O2 Sat (%) 95 07/16/18 12:59 O2 Delivery Mode Room Air Allergies/Adverse Reactions: adhesive Allergy (Intermediate, Verified 05/27/18 09:57) Rash Iodinated Contrast- Oral and IV Dye [Iodinated Contrast Media - IV Dye] Allergy (Verified 05/27/18 09:57) Swelling/neck,face,throat metoclopramide Allergy (Verified 05/27/18 09:57) Other-Enter Comments scopolamine Allergy (Verified 05/27/18 09:57) Other-Enter Comments Sdwubvr-Ans-Fln Reductase Inhibitor Allergy (Verified 05/27/18 09:57) Other-Enter Comments methyl methacrylate Allergy (Uncoded 11/24/17 11:34) Other-Enter Comments Home Medications: Medication Instructions Recorded Aspirin [Aspirin 325 mg (*)] 325 mg PO DAILY 06/27/13 Atenolol [Tenormin 25 mg (*)] 12.5 mg PO DAILY 06/27/13 Levothyroxine [Synthroid 150 mcg 137 mcg PO DAILY06 06/27/13 (*)] Raloxifene HCl [Evista] 60 mg PO DAILY 06/27/13 Pramipexole Di-HCl [Mirapex 1 mg 1 mg PO DAILY@12 06/29/14 (*)] Prozac 20 MG (*) 11/02/16 TRAMADOL HCL 11/02/16 Ranitidine HCl 02/11/17 Albuterol [Proventil Inhaler] 1 - 2 puffs IH Q4H #1 mdi 07/22/17 Leflunomide 07/22/17 Cephalexin [Keflex (*)] 500 mg PO TID #21 cap 05/27/18 Phenazopyridine HCl [Pyridium] 200 mg PO TID #6 tab 05/27/18 Cephalexin 500 mg PO TID #21 tablet 07/16/18 Medical Decision Making ED Course/Re-evaluation: Patient seen and evaluated for dysuria Urine dip positive for leukocytes Urine micro and urine culture sent to [facility] UTI Plan Cephalexin Follow culture results Follow-up with PCP Differential Diagnosis: Differential diagnosis considered but not limited to: Urinary tract infection, pyelonephritis - Data Points Point of Care Test Results: Urine Dip Collection Date 07/16/18 Collection Time 13:15 Specific [place] (1.002-1.030) 1.015 PH (5.0-7.5) 5.0 Leukocytes (Negative) 1+ Nitrites (Negative) Negative Protein (Negative) Negative Glucose (Negative) Negative Ketones (Negative) Negative Urobilnogen (0.2-1.0 EU) 0.2 Bilirubin (Negative) Negative Blood (Negative) Trace Departure - Departure Disposition: Home, Routine, Self-Care Clinical Impression: Urinary tract infection Condition: Good Instructions: Urinary Tract Infection in Women (ED) Referrals: Tiffany Ramírez MD [Primary Care Provider] - As per Instructions Prescriptions: Cephalexin 500 mg PO TID #21 tablet
== END 2018-07-16 13:52 | disposition home or self-care (01) ==
LOC: CED 12:48
DX: N39.0 Urinary tract infection, site not specified (principal)
CPT/HCPCS: 99283-ER